=== PATIENT | male | born 1940 | race Caucasian/White ===

== ENCOUNTER 2024-09-04 08:38 | Outpatient (RCR) | payer OTHER, SELFPAY ==
--- NOTE | 2024-09-04 09:51 | CTCFLWUP_ITS ---
[facility] [address] [place], [place] [address] FOLLOW-UP NOTE Date: 09/04/2024 MR#: [id number] Name: RAO ADAMS : 1940 Dx: C34.11 Malignant neoplasm of upper lobe, right bronchus or lung Identification. 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 Posttreatment PET 05/24/2024 revealed hypermetabolic 4.3 x 2.2 cm right upper lobe as well as multiple osteolytic lesions T-spine. There was suspicion of thoracic area along with adjacent right fifth rib involvement but he did not w ramirez to pursue this and this area was to be too small to biopsy according to [place] radiologist. MRI of T-spine was ordered with and without contrast February 2024. 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 Exam of the lung was clear. Patient not complaining of pain and appears to walk without difficulty. A#1. 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 Posttreatment PET 05/24/2024 shows still prominent lesion along with osteolytic lesion T-spine. A#3. Will repeat PET scan at this time. Patient citing age states that he is likely not want anythi ng more done in regards to the PET scan results. A#4 3 months return to clinic Electronically signed by: Gino Freeman M.D. 09/04/2024 9:49 AM
== END 2024-09-15 23:59 | disposition home or self-care (01) ==
LOC: SCTC 08:38
PROVIDERS: PCP Family Medicine; Referring Provider Family Medicine; Visit Provider Radiology Therapeutic Radiology
DX: C34.11 Malignant neoplasm of upper lobe, right bronchus or lung (principal); Z92.3 Personal history of irradiation; M89.58 Osteolysis, other site
CPT/HCPCS: 99213; G0463

== ENCOUNTER → 2024-10-11 | Outpatient (CLI) | payer OTHER, SELFPAY ==
--- NOTE | 2024-10-11 08:45 | XR_ITS ---
EXAMINATION: PET/CT FUSION SKULL TO THIGH EXAM DATE AND TIME: October 11, 2024 0915 hours Comparison May 24, 2024 INDICATIONS: Diagnosis lung cancer restaging CTDI:vol (mGy) 8.21 DLP: (mGycm) 749.66 PROCEDURE: 15.79 mCi FDG was administered intravenously To allow for distribution and uptake of radiotracer, the patient was allowed to rest quietly in a shielded room. Imaging was performed on an integrated 16-slice PET/CT scanner, with scanning from the skull base to the mid thigh. Serum blood glucose at the time of the injection was measured 154 mg/dL. CT scanning was performed without oral or intravenous contrast material. FINDINGS: Head and Neck: Mildly hypermetabolic left thyroid lobe Chest: Probable hypermetabolic muscle activity posterior left shoulder Enlarging hypermetabolic pulmonary mass right upper lobe, currently 4.9 x 4.3 cm invading the right tracheobronchial lymph node region Abdomen and Pelvis: There is no nessa hypermetabolism in retroperitoneal or pelvic chains. The spleen is normal in size and FDG avidity. Musculoskeletal: Non hypermetabolic osteolytic lesions thoracic spine do not show definite change on this low resolution CT chest abdomen IMPRESSION: Enlarging hypermetabolic pulmonary mass right upper lobe, currently 4.9 x 4.3 cm compared with 4.3 x 2.[address] scan May 24, 2024 Unchanged recommendations for MRI cervical thoracic and lumbar spine to assess for osseous metastatic disease
== END | disposition home or self-care (01) ==
PROVIDERS: Referring Provider Radiology Therapeutic Radiology; Visit Provider Radiology Therapeutic Radiology
DX: R91.8 Other nonspecific abnormal finding of lung field (principal); C34.11 Malignant neoplasm of upper lobe, right bronchus or lung
CPT/HCPCS: 78815; A9552

== ENCOUNTER 2024-10-15 10:58 | Outpatient (RCR) | payer OTHER, SELFPAY ==
--- NOTE | 2024-10-15 13:59 | CTCFLWUP_ITS ---
[facility] [address] [place], [place] [address] FOLLOW-UP NOTE Date: 10/15/2024 MR#: [id number] Name: RAO ADAMS : 1940 Dx: C34.11 Malignant neoplasm of upper lobe, right bronchus or lung Patient with non-small cell lung CA right upper lobe growing T1 size between 2 and 3 cm Completed SBRT 5 fractions between October and November 2023. Most recent PET shows enlarging mass right upper lobe now 4.9 x 4.3 cm. Also shows osteolytic lesions in T-spine. Patient has suspected spine met which did not want worked up or biopsied and just wanted to go with S BRT radiation to the known lung cancer. Patient states that he has been coughing up blood. Ordered chest x-ray. Told patient I will call hi m with results. Addendum. 5 cm right upper lobe nodule. No significant change from PET scan. Z-Edison ordered. See h im back within a month. Electronically signed by: Gino Freeman M.D. 10/15/2024 1:57 PM
== END 2024-10-16 23:59 | disposition home or self-care (01) ==
LOC: SCTC 10:58
PROVIDERS: Referring Provider Radiology Therapeutic Radiology; Visit Provider Radiology Therapeutic Radiology
DX: C34.11 Malignant neoplasm of upper lobe, right bronchus or lung (principal); R07.89 Other chest pain
CPT/HCPCS: 99213; G0463

== ENCOUNTER 2024-10-29 08:44 | Outpatient (RCR) | payer OTHER, SELFPAY ==
--- NOTE | 2024-10-29 10:47 | CTCFLWUP_ITS ---
[facility] [address] [place], [place] [address] FOLLOW-UP NOTE Date: 10/29/2024 MR#: [id number] Name: RAO ADAMS : 1940 Dx: C34.11 Malignant neoplasm of upper lobe, right bronchus or lung Identification. Patient with non-small cell lung CA right upper lobe T1 size between 2 and 3 cm. Completed SBRT 5 fractions between October therapy 2023. Most recent PET scan shows enlarging mass right upper lobe now 4.9 x 4.3 cm. Also showed osteolytic lesion in T-spine. Patient has suspected spine met which he did not want worked up or biopsied just wanted to go with SB RT radiation to the known lung cancer. Patient was coughing up blood and chest x-ray ordered 10/15/2024 which revealed a 5 cm pulmonary mass right upper lobe with no obvious infectious process. Lungs sound clear today. Complains of pain in right chest wall unrelieved by Tylenol. Placed patien t on [place] 5 and ordered a chest CT scan. Will see patient back in 2 months time. Complaining of pain right chest. Electronically signed by: Gino Freeman M.D. 10/29/2024 10:45 AM
== END 2024-11-16 23:59 | disposition home or self-care (01) ==
LOC: SCTC 08:44
PROVIDERS: Referring Provider Radiology Therapeutic Radiology; Visit Provider Radiology Therapeutic Radiology
DX: C34.11 Malignant neoplasm of upper lobe, right bronchus or lung (principal); G89.3 Neoplasm related pain (acute) (chronic); M89.58 Osteolysis, other site; Z92.3 Personal history of irradiation
CPT/HCPCS: 99213; G0463

== ENCOUNTER → 2024-11-15 | Outpatient (CLI) | payer OTHER, SELFPAY ==
[2024-11-15 13:15] LABS: Basophils % (Auto) 0 % (0-2.5); Eosinophils # (Auto) 0.1 Thou/mm3 (0.0-0.5); Eosinophils % (Auto) 1 % (0-10); Hemoglobin 13.1 g/dL (13.5-16.0); Immature Granulocytes % (Auto) 0 % (0-0); Immature Granulocytes Auto 0.02 Thou/mm3 (0.00-0.00); Lymphocytes # (Auto) 1.6 Thou/mm3 (1.0-4.8); Lymphocytes % (Auto) 21 % (10-50); Mean Corpuscular HGB Conc 32.8 g/dl (31.0-37.0); Mean Corpuscular Hemoglobin 28.6 pg (25.0-35.0); Mean Corpuscular Volume 87 fL (80-100); Monocytes # (Auto) 0.7 Thou/mm3 (0.0-0.8); Monocytes % (Auto) 9 % (0-12); Neutrophils # (Auto) 5.1 Thou/mm3 (1.8-7.7); Neutrophils % (Auto) 68 % (37-80); Nucleated Red Blood Cell % 0 /100 WBC (0); Platelet Count 254 Thou/mm3 (140-440); RDW Standard Deviation 41.1 fL (35.1-43.9); Red Blood Count 4.58 Miln/mm3 (4.50-5.90); White Blood Count 7.5 Thou/mm3 (3.8-10.6)
[2024-11-15 13:25] LABS: Alanine Aminotransferase 44 U/L (10-49); Alkaline Phosphatase 149 U/L (46-116); Anion Gap 5 (7-16); Aspartate Amino Transferase 34 U/L (0-34); BUN/Creatinine Ratio 23 Ratio (12-20); Bilirubin,Total 0.5 mg/dL (0.3-1.2); Blood Urea Nitrogen 16 mg/dL (9-23); Calcium 10.1 mg/dL (8.3-10.6); Calcium (Corrected) 10.1 mg/dL (8.5-10.1); Carbon Dioxide 30.8 mMol/L (20.0-31.0); Chloride 101 mMol/L (98-107); Creatinine (Component) 0.7 mg/dL (0.6-1.3); Glucose 154 mg/dL (74-106); Osmolality,Calculated 278 (275-295); Potassium 4.1 mMol/L (3.4-5.1); Sodium 137 mMol/L (136-145); eGFR > 60 See Note
== END | disposition home or self-care (01) ==
PROVIDERS: Referring Provider Radiology Therapeutic Radiology; Visit Provider Radiology Therapeutic Radiology
DX: C34.11 Malignant neoplasm of upper lobe, right bronchus or lung (principal)
CPT/HCPCS: 36415; 80053; 85025

== ENCOUNTER → 2024-11-22 | Outpatient (CLI) | payer OTHER, SELFPAY ==
--- NOTE | 2024-11-22 12:00 | XR_ITS ---
Examination: CT chest with intravenous contrast 2-D sagittal and coronal reconstructions Exam date and time: November 22, 2024 1150 hours COMPARISON: PET CT scan October 11, 2024 INDICATIONS: Diagnosis malignant neoplasm upper lobe right bronchus, hemoptysis coughing 2 months, PET CT scan October 11, 2024 hypermetabolic pulmonary mass right upper lobe 4.9 x 4.3 cm CTDI:vol (mGy) 11.6 DLP: (mGycm) 102 Technique: Multiple axial sections of the thorax have been obtained. Sections have been obtained, 3 mm slice thickness. Mediastinal and lung density settings have been obtained. Intravenous contrast administered, 60 cc Isovue-370. 2-D sagittal, coronal images obtained. Low dose protocols were performed. One or more of the following dose reduction techniques were used; automated exposure control, adjustment of the mA and/or KV according to patient size, use of iterative reconstruction technique. Findings: 20 mm left thyroid nodule Pulmonary mass right upper lobe 5.4 x 4.2 x 6.1 cm contiguous with the right mediastinum and surrounding and upper lobe pulmonary artery branch 2 mm pulmonary nodule left lower lobe 2 mm pulmonary nodule right upper lobe 3 mm pulmonary nodule right lower lobe No visualized liver or splenic lesions Absent gallbladder No pancreatic or adrenal mass No hydronephrosis IMPRESSION: 5.4 x 4.2 x 6.1 cm pulmonary mass right upper lobe contiguous with the right mediastinum Noncalcified metastatic pulmonary nodules 20 mm left thyroid nodule, consider thyroid sonography follow-up
== END | disposition home or self-care (01) ==
PROVIDERS: Referring Provider Radiology Therapeutic Radiology; Visit Provider Radiology Therapeutic Radiology
DX: E04.1 Nontoxic single thyroid nodule (principal); R91.1 Solitary pulmonary nodule; C78.00 Secondary malignant neoplasm of unspecified lung; C34.11 Malignant neoplasm of upper lobe, right bronchus or lung
CPT/HCPCS: 71260; A4649; Q9967

== ENCOUNTER 2024-12-27 07:30 | Outpatient (RCR) | payer OTHER, SELFPAY ==
--- NOTE | 2024-12-27 08:44 | CTCFLWUP_ITS ---
[facility] [address] [place], [place] [address] FOLLOW-UP NOTE Date: 12/27/2024 MR#: [id number] Name: RAO ADAMS : 1940 Dx: C34.11 Malignant neoplasm of upper lobe, right bronchus or lung Identification. Patient with non-small cell lung C right upper lobe T1 size between 2 and 3 cm. Completed SBRT 5 fractions 11/15/2023 through 11/30/2023 Most recent PET scan 10/11/2024 showed enlarging right upper mass now 4.3 x 4.3 cm. Also showed osteolytic lesion T-spine. Patient with previously suspected lesion spine met did not want this worked up or biopsied just 1 to get SBRT radiation to the known lung cancer. CT scan chest 11/22/2024 showed lesion 5.4 x 4.2 x 6.1 cm pulmonary mass right upper lobe contiguous with the right mediastinum. There was also noncalcified metastatic pulmonary nodules. Electronically signed by: Gino Freeman M.D. 12/27/2024 8:41 AM There was a 20 mm left thyroid nodule as well. Currently patient is having some right chest wall pain. Denies any more hemoptysis. [facility] who referred patient to Dr. Dahl and left a message. Will order biopsy of the right lung mass and see him back in 2 months.
== END 2025-01-14 23:59 | disposition home or self-care (01) ==
LOC: SCTC 07:30
PROVIDERS: PCP Physician Assistant; Referring Provider Radiology Therapeutic Radiology; Visit Provider Radiology Therapeutic Radiology
DX: C34.11 Malignant neoplasm of upper lobe, right bronchus or lung (principal); R91.8 Other nonspecific abnormal finding of lung field
CPT/HCPCS: 99212; G0463

== ENCOUNTER 2025-01-21 14:09 | Emergency (ER) | payer OTHER, SELFPAY ==
[2025-01-21 14:13] VITALS: BMI 27.8
[2025-01-21 14:21] VITALS: BP 121/56; PULSE 95; RESP 18; TEMP 36.6; O2SAT 94
--- NOTE | 2025-01-21 14:39 | XR_ITS ---
Impression: Chest 2 views Technique: Upright PA lateral chest 2 views Exam date and time: January 21, 2025 1517 hrs. Comparison October 15, 2024 Indications: Shortness of breath today Findings: Pulmonary mass right upper lobe again noted Obstructive pneumonia in the right upper lobe Normal heart size Moderate osteopenia Impression: Pulmonary mass right upper lobe again noted, please see the CT chest report November 22, 2024 Early obstructive pneumonia right upper lobe Minimal right pleural fluid
--- NOTE | 2025-01-21 14:39 | PD.EDRME ---
Rapid Medical Screening Exam RME Arrival date/time: 01/21/25 14:09 84-year-old male with a history of lung cancer presents to the emergency room with a chief complaint of shortness of breath and chest pain x 1 week I have greeted and performed a focused initial assessment of this patient. A comprehensive ED assessment and evaluation of the patient, analysis of all test results, and completion of the medical decision making process will be conducted by additional ED providers. Chief Complaint: Shortness of Breath/Dyspnea Vital signs: Vital Signs Temperature 97.9 F 01/21/25 14:21 Pulse Rate 95 01/21/25 14:21 Respiratory Rate 18 01/21/25 14:21 Blood Pressure 121/56 L 01/21/25 14:21 Pulse Oximetry (%) 94 L 01/21/25 14:21 Oxygen Delivery Method Room Air 01/21/25 14:21 Vital signs reviewed by provider: Yes
[2025-01-21 15:02] LABS: Basophils % (Auto) 0 % (0-2.5); Eosinophils # (Auto) 0.1 Thou/mm3 (0.0-0.5); Eosinophils % (Auto) 1 % (0-10); Hematocrit 40.3 % (41.0-53.0); Hemoglobin 13.2 g/dL (13.5-16.0); Immature Granulocytes % (Auto) 1 % (0-0); Immature Granulocytes Auto 0.07 Thou/mm3 (0.00-0.00); Lymphocytes % (Auto) 9 % (10-50); Mean Corpuscular HGB Conc 32.8 g/dl (31.0-37.0); Mean Corpuscular Hemoglobin 29.3 pg (25.0-35.0); Mean Corpuscular Volume 89 fL (80-100); Monocytes % (Auto) 9 % (0-12); Neutrophils # (Auto) 9.1 Thou/mm3 (1.8-7.7); Neutrophils % (Auto) 81 % (37-80); Nucleated Red Blood Cell % 0 /100 WBC (0); Platelet Count 286 Thou/mm3 (140-440); RDW Standard Deviation 45.1 fL (35.1-43.9); Red Blood Count 4.51 Miln/mm3 (4.50-5.90); White Blood Count 11.3 Thou/mm3 (3.8-10.6)
[2025-01-21 15:23] LABS: Alanine Aminotransferase 14 U/L (10-49); Albumin, Serum 3.7 gm/dL (3.4-4.8); Alkaline Phosphatase 155 U/L (46-116); Anion Gap 9 (7-16); Aspartate Amino Transferase 19 U/L (0-34); BUN/Creatinine Ratio 19 Ratio (12-20); Blood Urea Nitrogen 13 mg/dL (9-23); Calcium 10.5 mg/dL (8.3-10.6); Calcium (Corrected) 10.7 mg/dL (8.5-10.1); Carbon Dioxide 31.8 mMol/L (20.0-31.0); Chloride 96 mMol/L (98-107); Creatinine (Component) 0.7 mg/dL (0.6-1.3); Estimated Creatinine Clearance 79.5 mL/min (>60); Globulin 3.8 gm/dL (2.3-3.5); Glucose 160 mg/dL (74-106); Lipase 38 U/L (12-53); Osmolality,Calculated 276 (275-295); Potassium 3.6 mMol/L (3.4-5.1); Sodium 137 mMol/L (136-145); Total Protein 7.5 gm/dL (5.7-8.2); eGFR > 60 See Note
[2025-01-21 15:37] LABS: Collection Type, Urine Clean Catch
[2025-01-21 15:44] LABS: Bilirubin,Urine Negative (Negative); Blood,Urine Negative (Negative); Clarity,Urine Clear (Clear/Hazy); Color,Urine Yellow (Lt Yel-Yel); Glucose, Urine Negative (Negative); Hyaline Casts,Urine < 1 /hpf (0-1); Ketones,Urine Negative (Negative); Leukocyte Esterase,Urine Negative (Negative); Nitrite,Urine Negative (Negative); PH,Urine 6.5 (5.0-7.0); Protein,Urine 1+ (Neg - Trace); RBC,Urine 2 /hpf (0-3); Specific Gravity,Urine 1.031 (1.001-1.035); Squamous Epithelial Cell,Urine < 1 /hpf (0-5); WBC,Urine 3 /hpf (0-5)
--- NOTE | 2025-01-21 16:14 | PD.EDRME ---
Rapid Medical Screening Exam RME Arrival date/time: 01/21/25 14:09 01/21/25 14:09 84-year-old male with a history of lung cancer presents to the emergency room with a chief complaint of shortness of breath and chest pain x 1 week I have greeted and performed a focused initial assessment of this patient. A comprehensive ED assessment and evaluation of the patient, analysis of all test results, and completion of the medical decision making process will be conducted by additional ED providers. Chief Complaint: Shortness of Breath/Dyspnea Time Seen by Provider: 01/21/25 16:12 Vital signs: Vital Signs Temperature 97.9 F 01/21/25 14:21 Pulse Rate 95 01/21/25 14:21 Respiratory Rate 18 01/21/25 14:21 Blood Pressure 121/56 L 01/21/25 14:21 Pulse Oximetry (%) 94 L 01/21/25 14:21 Oxygen Delivery Method Room Air 01/21/25 14:21 RME Narrative: 01/21/25 14:09 84-year-old male with a history of lung cancer presents to the emergency room with a chief complaint of shortness of breath and chest pain x 1 week I have greeted and performed a focused initial assessment of this patient. A comprehensive ED assessment and evaluation of the patient, analysis of all test results, and completion of the medical decision making process will be conducted by additional ED providers.
--- NOTE | 2025-01-21 18:05 | XR_ITS ---
Examination: CTA chest with intravenous contrast 2-D reconstructions 3-D reconstructions, vascular Date and time of exam: January 22, 2025 0754 hrs. Comparison November 22, 2024 Indications: Onset chest pain shortness of breath today, lung carcinoma diagnosis CTDI: vol (mGy) 24.6 DLP: (mGycm) 575 Technique: Multiple axial sections of the thorax have been obtained. 3 mm slice thickness, from below the hemidiaphragms to above the apices of the lungs. Mediastinal and lung density settings have been obtained. 2-D sagittal and coronal reconstructions. 3-D angiographic renderings, 3-D volume renderings, 3D post processing, vascular maximum intensity projections obtained. Contrast administered is 100 cc Isovue-370. Low dose protocols were performed. One or more of the following dose reduction techniques were used; automated exposure control, adjustment of the mA and/or KV according to patient size, use of iterative reconstruction technique. Findings: Significant thyromegaly with multiple left thyroid nodules, the largest 21 mm no thoracic aortic aneurysmal dilatation No pulmonary artery emboli Enlarging pulmonary mass right upper lobe contiguous with the right mediastinum, measuring 7.1 x 5.8 cm compared to 6.1 x 5.4 cm on November 22, 2024 This mass is destroying the right first second ribs anteriorly No pulmonary artery emboli 4 mm pulmonary nodule posterior right lung Pneumonia in the right upper lobe Pneumonia right base with mild bilateral pleural fluid No visualized liver or splenic lesion Absent gallbladder No pancreatic or adrenal mass No hydronephrosis Prominent osteopenia Impression: Enlarging pulmonary mass right upper lobe invading the right mediastinum, measuring 7.1 x 5.8 cm compared to 6.1 x 5.4 cm on November 22, 2024 This mass is destroying portions of the right first and second ribs anteriorly Pneumonia right upper lobe, right base Negative for pulmonary artery emboli
--- NOTE | 2025-01-21 18:05 | EKG_ITS ---
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
--- NOTE | 2025-01-21 18:27 | PC.NURSE ---
SP02 TAKEN IN MAIN ED LOBBY 97% ON RA. PATIENT BREATHING WITH NO DIFFICULTY. POC UPDATED, PATIENT UPSET FOR BEING IN MAIN LOBBY, AND NOT IN BED AT THIS TIME.
[2025-01-21 18:31] LABS: Troponin I < 0.020 ng/mL (0.0-0.045)
[2025-01-21 18:47] LABS: B-Type Natriuretic Peptide 25 pg/mL (0-100)
--- NOTE | 2025-01-21 18:55 | PD.EDSOB ---
ED SOB =RME/HPI General Chief Complaint: Shortness of Breath/Dyspnea Stated Complaint: SOB AND COUGH X1 MONTH ([place] PATIENT) Time Seen by Provider: 01/21/25 16:12 Arrival date/time: 01/21/25 14:09 RME / HPI RME / HPI Narrative: 01/21/25 14:09 84-year-old male with a history of lung cancer presents to the emergency room with a chief complaint of shortness of breath and chest pain x 1 week I have greeted and performed a focused initial assessment of this patient. A comprehensive ED assessment and evaluation of the patient, analysis of all test results, and completion of the medical decision making process will be conducted by additional ED providers. This section includes all my notes and documentations, including HPI, PE, and ED course. Gael Freeman MD HPI: 84-year-old male here with a couple month history of right-sided chest pain and shortness of breath, worse in the past few days. Has unfortunate history of lung cancer. Completed radiation treatment about 6 months ago. Declined chemotherapy. No surgery. No fever or chills. No productive cough. No other complaints. ROS: All negative except as documented in HPI. Physical Exam: General: Alert and oriented. In mild respiratory distress. Hypoxia noted. Eyes: Conjunctivae and lids clear. ENT: No nasal congestion. Neck: Supple. Heart: RRR. Lungs: Mild respiratory distress. Moderately decreased air movement with rhonchi and rales. Abdomen: Soft and nontender. Legs: No clubbing, cyanosis, edema. Skin: Warm and dry. Neuro: Alert and oriented X 3. I reviewed all diagnostic test results. My interpretation of the EKG is sinus rhythm with no acute ST?T changes. My review of the chest x-ray report is: Pulmonary mass right upper lobe. Obstructive pneumonia right upper lobe. Blood tests and urine tests remarkable for WBC 11.3, ESR 90, D-dimer 866, CRP 4.3. At this point, diagnoses include chest pain and shortness of breath with hypoxia and lung cancer patient. Treatment here included IV fluid, Solu-Medrol, DuoNeb, morphine, and Zosyn. At 6 AM on 01/22/25, the care of the patient was transferred to Dr. NOBLES with chest CTA pending. Gael Freeman MD Related Data Home Medications ?Medication ?Instructions ?Recorded ?Confirmed bisacodyl 5 mg tablet 5 mg PO QDAY PRN Constipation 12/19/17 12/19/17 hydrochlorothiazide 12.5 mg capsule 12.5 mg PO QAM 12/19/17 12/19/17 tamsulosin 0.4 mg capsule 0.4 mg PO QDAY 12/19/17 12/19/17 Previous Rx's ?Medication ?Instructions ?Recorded doxycycline hyclate 100 mg capsule 100 mg PO BID #14 caps 12/19/17 Allergies Allergy/AdvReac Type Severity Reaction Status Date / Time No Known Allergies Allergy Verified 01/21/25 14:13 Review of Systems Review of Systems Systems Reviewed: All systems reviewed, normal except as documented Past Medical History Past Medical History CARDIAC: Positive Hypertension; Negative Cardiac Disorders or Congestive Heart Failure RESPIRATORY: Negative Chronic Obstructive Pulmonary Disease (COPD) or Asthma GENITOURINARY: Positive Benign Prostatic Hyperplasia; Negative Renal Disease ENDOCRINE: Negative Diabetes Mellitus Type 1 or Diabetes Mellitus Type 2 HEMATOLOGIC: Negative Sickle Cell Disease Social History SMOKING STATUS: Former smoker ED Exam Narrative Physical exam: As noted in HPI. Course Course Course Narrative: CXR is ordered for determining the etiology of shortness of breath. Quality Measures none Orders Category Date Time Status Bedside COVID-19 Antigen Test NOW Care 01/21/25 19:31 Active Bedside Influenza A&B Antigen Test NOW Care 01/21/25 19:[address] Screening NOW Care 01/21/25 18:[address] Screening X1 Care 01/21/25 18:05 Completed EKG (ED ONLY) *Do not use* NOW Care 01/21/25 18:05 Completed Saline [Insert IV] NOW Care 01/21/25 19:[address] angio chest Stat Exams 01/21/25 18:05 Ordered EKG (ED Only) Stat Exams 01/21/25 18:05 Draft XR chest 2V Stat Exams 01/21/25 14:39 Completed ABG [Arterial Blood Gas] Stat Lab 01/21/25 20:12 Completed BNP [B-Type Natriuretic Peptide] Stat Lab 01/21/25 14:48 Completed Blood Culture (Lab) Stat Lab 01/21/25 19:42 Received CBC Stat Lab 01/21/25 14:48 Completed CMP [Comprehensive Metabolic Panel] Stat Lab 01/21/25 14:48 Completed CRP [C-Reactive Protein] Stat Lab 01/21/25 19:46 Completed D-Dimer Stat Lab 01/21/25 19:46 Completed ESR [Sed Rate (ESR)] Stat Lab 01/21/25 19:46 Completed Free T4 (Free Thyroxine) Stat Lab 01/21/25 19:46 Completed Lipase Stat Lab 01/21/25 14:48 Completed Magnesium Stat Lab 01/21/25 19:46 Completed PT [Prothrombin Time with INR] Stat Lab 01/21/25 19:46 Completed PTT [Partial Thromboplastin Time] Stat Lab 01/21/25 19:46 Completed Procalcitonin Stat Lab 01/21/25 19:46 Completed RSV [Respiratory Syncytial Virus Ag] Stat Lab 01/21/25 22:00 Completed TSH [Thyroid Stimulating Hormone] Stat Lab 01/21/25 19:46 Completed Troponin I Stat Lab 01/21/25 14:48 Completed UA [Urinalysis] Stat Lab 01/21/25 15:18 Completed Urine Culture Stat Lab 01/21/25 15:18 Received Albuterol/Ipratr Rt Jennifer [Duoneb Rt Jennifer] Med 01/21/25 19:29 Discontinued 3 ml INH X1 ONE MethylPREDNISolone.* [SoluMEDROL Inj] Med 01/21/25 19:29 Discontinued 125 mg IVP X1 ONE Piper/Tazo 3.375 gm Premix [Zosyn] Med 01/21/25 19:29 Discontinued 3.375 gm in 50 ml IV X1 Sodium Chloride 0.9% 1000 ml [Ns] 1,000 ml Med 01/21/25 19:29 Discontinued IV 999 mls/hr Vital Signs Vital signs: Vital Signs Temperature 97.9 F 01/21/25 14:21 Pulse Rate 95 01/21/25 14:21 Respiratory Rate 18 01/21/25 14:21 Blood Pressure 121/56 L 01/21/25 14:21 Pulse Oximetry (%) 94 L 01/21/25 14:21 Oxygen Delivery Method Room Air 01/21/25 14:21 Shortness of Breath / Dyspnea Patient data External records reviewed:: [facility] previous records (Per chart review, patient was seen here on 02/26/21 for shortness of breath.) Clinical information provided by:: patient Social determinants that could affect healthcare access:: none Patient has the following chronic illnesses:: HTN, BPH, lung cancer How is presenting disease/condition affected by chronic disease/condition?: exacerbated by Evaluation data The following diagnostics were reviewed and interpreted by me:: lab results, radiology exam(s) and EKG tracing(s) Lab and/or radiology exams considered but not ordered:: none Interpretation Summary: Complete diagnostics pending Medications / Prescriptions Medications or Prescriptions considered but not ordered:: none Medication administrations:: Medication Administration History Discontinued Medications Albuterol/Ipratropium (Albuterol/Ipratropium (Duoneb) Rt Jennifer 3 Ml Nebu) 3 ml INH X1 ONE Stop: 01/21/25 19:30 Last Admin: 01/21/25 20:06 Dose: 3 ml Documented By: FLAQUITO Sodium Chloride (Ns) 1,000 mls @ 999 mls/hr IV .Q1H1M ONE Stop: 01/21/25 20:29 Last Infusion: 01/21/25 21:55 Dose: Infused Documented By: Admin: 01/21/25 20:43 Dose: 999 mls/hr Documented By: DAYAN Piperacillin/Tazobactam/Dextrose (Zosyn) 3.375 gm in 50 mls @ 100 mls/hr IV X1 ONE Stop: 01/21/25 19:58 Last Infusion: 01/21/25 21:16 Dose: Infused Documented By: Admin: 01/21/25 20:44 Dose: 100 mls/hr Documented By: DAYAN Methylprednisolone Sodium Succinate (Methylprednisolone Sod Succ 62.5 Mg/Ml 2ml Vial) 125 mg IVP X1 ONE Stop: 01/21/25 19:30 Last Admin: 01/21/25 20:44 Dose: 125 mg Documented By: DAYAN Duoneb, NS, Zosyn, Methylprednisolone, morphine Consultations Consultation(s) initiated? (list below): No Diagnosis Shortness of Breath Differential Diagnosis: acute exacerbation of chronic obstructive airways disease, congestive heart failure, community acquired pneumonia, asthma with exacerbation and pulmonary embolism Most likely diagnosis given after review of the tests above:: Complete diagnostics pending Admission Indicated Admission indicated?: not indicated Explain why admission is indicated or not indicated:: Complete diagnostics pending Admission Request Was there a request for admission?: No Disposition Plan Disposition Plan: other (specify) (Care of the patient was transferred to Dr. NOBLES.) Discharge Plan Prescriptions/Referrals Prescriptions/Med Rec: No Action tamsulosin 0.4 mg Capsule,Extended Release 24hr 0.4 mg PO QDAY hydrochlorothiazide 12.5 mg Capsule 12.5 mg PO QAM bisacodyl 5 mg Tablet 5 mg PO QDAY PRN (Reason: Constipation) doxycycline hyclate 100 mg capsule 100 mg PO BID Qty: 14 0RF Referrals: Gino Freeman MD [Primary Care Provider] - In 1 week Problem List Clinical Impression: Shortness of breath, Chest pain Patient/Caregiver Discharge Instructions Print Language: Slovak
[2025-01-21 19:56] VITALS: BP 146/76; PULSE 82; RESP 18; TEMP 36.4; O2SAT 96
[2025-01-21] MEDS: ALBUTEROL/IPRATROPIUM (Duoneb) RT SOL 3 ML NEBU INH (20:06)
[2025-01-21 20:17] VITALS: PULSE 81; RESP 18; O2SAT 98
[2025-01-21 20:17] LABS: Base Excess 9 (-3-3); HCO3 34 mEq/L (20-26); Inspired Oxygen, FIO2 97 %; O2 Saturation 95 % (91-98); PCO2 44 mmHg (32.0-48.0); PO2 69 mmHg (83-108); pH, Arterial 7.49 (7.35-7.45)
[2025-01-21 20:18] LABS: Allen Test Performed/OK; Puncture Site Left Radial
[2025-01-21 20:27] LABS: INR 1.1 (0.9-1.3); Partial Thromboplastin Time 26.2 Seconds (22.0-36.0); Prothrombin Time 12.4 Seconds (9.0-12.2)
[2025-01-21 20:36] LABS: C-Reactive Protein 4.3 mg/dL (0.0-0.9); Free T4 (Free Thyroxine) 1.17 ng/dL (0.89-1.76); Magnesium 1.9 mg/dL (1.6-2.6); Procalcitonin 0.15 ng/ml (0.0-0.49); Thyroid Stimulating Hormone 0.98 uIU/mL (0.55-4.78)
[2025-01-21 20:38] LABS: D-Dimer 866 ng/mL (<600)
[2025-01-21 20:39] LABS: Sed Rate (ESR) 90 mm/hr (0-20)
[2025-01-21] MEDS: SODIUM CHLORIDE 0.9% 1000 ML 1,000 ML 999 ML IV (20:43)
[2025-01-21] MEDS: MethylPREDNISolone SOD SUCC 62.5 MG/ML 2ML VIAL 125 MG IVP (20:44)
[2025-01-21] MEDS: PIPER/TAZO 3.375 GM PREMIX 3.375 GM/50 ML BAG IV (20:44)
[2025-01-21 20:57] VITALS: BP 152/76; PULSE 81; RESP 17; O2SAT 96
[2025-01-21 21:00] VITALS: BP 152/76; PULSE 84; RESP 20; TEMP 36.7; O2SAT 92
--- NOTE | 2025-01-21 22:00 | PC.CC ---
Zaira SNYDER arranged CT Transport for patient with [facility] for 0500.
[2025-01-21 22:45] LABS: Respiratory Syncytial Virus Ag Negative (Negative)
[2025-01-22] VITALS (10 sets, daily range): BP systolic 125–167; BP diastolic 73–94; PULSE 70–86; RESP 18–20; TEMP 36.7–37; O2SAT 93–97
--- NOTE | 2025-01-22 06:06 | PD.EDADDENDU ---
Emergency Room Addendum Addendum Narrative: 0600: Care assumed from Dr. Freeman, the previous shift emergency physician. Past medical, surgical, social and family history reviewed. Vitals and home medications reviewed. I will assume the care of the patient at this time, pending chest CTA and final disposition. Please refer to the emergency department record for history and examination from initial visit.? Physical exam by me shows patient under no acute distress at this time. 1005: Patient remains clinically stable throughout the emergency department visit. Re-assessment at the time of disposition demonstrates that the patient is in no acute distress. We reviewed all the results, analysis, and treatment plans. Patient is amenable to discharge. Strict return precautions were outlined. Patient was discharged in stable condition. Diagnoses: -Shortness of breath -Chest pain -Lung mass RADIOLOGY Procedure(s): CT angio chest Accession Number(s): [id number] cc: Jean Pierre Blevins; Gino Freeman MD; Ashkan Bruce MD~ Examination: CTA chest with intravenous contrast 2-D reconstructions 3-D reconstructions, vascular Date and time of exam: January 22, 2025 0754 hrs. Comparison November 22, 2024 Indications: Onset chest pain shortness of breath today, lung carcinoma diagnosis CTDI: vol (mGy) 24.6 DLP: (mGycm) 575 Technique: Multiple axial sections of the thorax have been obtained. 3 mm slice thickness, from below the hemidiaphragms to above the apices of the lungs. Mediastinal and lung density settings have been obtained. 2-D sagittal and coronal reconstructions. 3-D angiographic renderings, 3-D volume renderings, 3D post processing, vascular maximum intensity projections obtained. Contrast administered is 100 cc Isovue-370. Low dose protocols were performed. One or more of the following dose reduction techniques were used; automated exposure control, adjustment of the mA and/or KV according to patient size, use of iterative reconstruction technique. Findings: Significant thyromegaly with multiple left thyroid nodules, the largest 21 mm no thoracic aortic aneurysmal dilatation No pulmonary artery emboli Enlarging pulmonary mass right upper lobe contiguous with the right mediastinum, measuring 7.1 x 5.8 cm compared to 6.1 x 5.4 cm on November 22, 2024 This mass is destroying the right first second ribs anteriorly No pulmonary artery emboli 4 mm pulmonary nodule posterior right lung Pneumonia in the right upper lobe Pneumonia right base with mild bilateral pleural fluid No visualized liver or splenic lesion Absent gallbladder No pancreatic or adrenal mass No hydronephrosis Prominent osteopenia Impression: Enlarging pulmonary mass right upper lobe invading the right mediastinum, measuring 7.1 x 5.8 cm compared to 6.1 x 5.4 cm on November 22, 2024 This mass is destroying portions of the right first and second ribs anteriorly Pneumonia right upper lobe, right base Negative for pulmonary artery emboli Dictated By: Ashkan Bruce MD
[2025-01-22] MEDS: MORPHINE SULF INJ 10 MG/ML VIAL 4 MG IVP (06:32)
--- NOTE | 2025-01-22 10:02 | PC.NURSE ---
PATIENT 02
--- NOTE | 2025-01-22 10:08 | PC.NURSE ---
PATIENT REMOVED OFF 02 BY TO MONITOR TOLERANCE ON ROOM AIR. APPROX 15-20 MINUTES LATER PT 02 SATS DECREASED TO %88RA. MD AWARE. PT PLACED BACK ON 1L VIA NC
--- NOTE | 2025-01-22 11:23 | PC.SS ---
Addendum entered by MITUL Alcala 01/22/25 16:46: SS update: spoke with [facility] staff and they inform DME to be delivered within the next few minutes. Pizza Driver is on his way to the ED. ASW notified patient's grandson Myles [phone], who will notify [facility] about DME ETA. Addendum entered by MITUL Alcala 01/22/25 16:08: SS update: sent follow up message to [employer] via [employer] Pending call back from [employer] in regards to DME order. Addendum entered by MITUL Alcala 01/22/25 15:52: Attempted contact with [facility] to notify that we are pending DME vendor response for delivery. No answer and voicemail was provided. Addendum entered by MITUL Alcala 01/22/25 14:31: SS update: contacted [facility] and spoke with Celena at ext [phone] regarding DME insurance verification. Celena requested I fax the DME order to her at fax:[phone] for review. Per Celena, [facility] is still the assigned DME vendor and if approved for O2 delivery, [employer] will still need to confirm the DME delivery. Addendum entered by MITUL Alcala 01/22/25 13:39: SS update: contacted [facility] in regards to DME order pending for insurance verification. They were unable to assist. Attempted contact with [facility] DME vendor and they continue to be unavailable at this time. [facility] has been notified the patient is ready for discharge from the ED. No response at this time from [employer]. Addendum entered by MITUL Alcala 01/22/25 12:25: SS update: pending insurance verification for DME delivery. Attempted contact with [facility], however unavailable at this time. Original Note: SS follow up: DME inquiry sent via [employer], pending response for DME delivery.
== END 2025-01-22 17:51 | disposition home or self-care (01) ==
PROVIDERS: Emergency Medicine; Nurse Practitioner Family; Emergency Provider Emergency Medicine; PCP Radiology Therapeutic Radiology
DX: R06.02 Shortness of breath (principal); R07.9 Chest pain, unspecified; Z85.118 Personal history of other malignant neoplasm of bronchus and lung; Z92.3 Personal history of irradiation
CPT/HCPCS: 36415; 36600; 71046; 71275; 80053; 81001; 82803; 83690; 83735; 83880; 84145; 84439; 84443; 84484; 85025; 85379; 85610; 85652; 85730; 86140; 87040; 87086; 87400; 87634; 87811; 93005; 94640; 96365; 96375; 99285; A4649; A9270; J2270; J2543; J2919; J7030; Q9967

== ENCOUNTER → 2025-02-08 | Outpatient (CLI) | payer OTHER, SELFPAY ==
--- NOTE | 2025-02-08 14:30 | XR_ITS ---
Examination: Thyroid sonography complete TECHNIQUE: Grayscale sonographic images thyroid lobes with color flow analysis Exam date and time: February 08, 2025 1506 hours INDICATIONS: CT chest November 22, 2024 20 mm left thyroid nodule. FINDINGS: Right thyroid 3.5 cm Lower pole nodules the largest 11 x 10 mm Left thyroid 5.7 cm Upper pole nodule 11 x 11 mm midpole nodule 22 x 19 mm lower pole vascular nodule 37 x 36 mm IMPRESSION: Multiple thyroid nodules as above Consider ultrasound-guided fine-needle aspiration of the large vascular lower pole left thyroid nodule
== END | disposition home or self-care (01) ==
PROVIDERS: Referring Provider Nurse Practitioner Primary Care; Visit Provider Nurse Practitioner Primary Care
DX: E04.2 Nontoxic multinodular goiter (principal)
CPT/HCPCS: 76536

== ENCOUNTER 2025-03-17 23:33 | Emergency (ER) | payer OTHER, SELFPAY ==
[2025-03-17 23:40] VITALS: PULSE 124; RESP 26; O2SAT 60; BMI 28.1
[2025-03-17 23:53] VITALS: BP 131/74; PULSE 124; RESP 19; TEMP 37.1; O2SAT 95
[2025-03-18] VITALS (58 sets, daily range): BP systolic 58–143; BP diastolic 50–99; PULSE 105–167; RESP 12–35; TEMP 36.6–37.4; O2SAT 87–100
--- NOTE | 2025-03-18 00:11 | EKG_ITS ---
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
--- NOTE | 2025-03-18 00:19 | EDNOTE_ITS ---
ED SOB =RME/HPI General Chief Complaint: Shortness of Breath/Dyspnea Stated Complaint: HYPOXIA, FALL Time Seen by Provider: 03/17/25 23:38 Arrival date/time: 03/17/25 23:33 RME / HPI RME / HPI Narrative: Dr. Gracia?s Main ED Evaluation: 84yo male with a history of lung CA, prostate CA, DMI, HTN, dementia [facility] from [facility] presents to the ED for complaints of fall and hypoxia. Per caregiver, patient was attempting to ambulate out of bed when he tripped and fell, hitting his head. Unknown LOC. Per EMS, patient desaturated to the 60s en route and was placed on a nonrebreather mask. Patient has a history of dementia and is unable to provide accurate history. Full ROS is unobtainable due to the patient's history of dementia. Evidently, the patient is on hospice. There is no POLST noted from SNF paper work. Related Data Home Medications ?Medication ?Instructions ?Recorded ?Confirmed bisacodyl 5 mg tablet 5 mg PO QDAY PRN Constipatio n 12/19/17 12/19/17 hydrochlorothiazide 12.5 mg capsule 12.5 mg PO QAM 03/0312/19/17 tamsulosin 0.4 mg capsule 0.4 mg PO QDAY 12/19/1703/03 Previous Rx's ?Medication ?Instructions ?Recorded doxycycline hyclate 100 mg capsule 100 mg PO BID #14 c aps 12/19/17 Allergies Allergy/AdvReac Type Severity Reaction Status Date / Time No Known Allergies Allergy Verified 03/17/25 23:52 Review of Systems Review of Systems Systems Reviewed: All systems reviewed, normal except as documented Past Medical History Past Medical History NEUROLOGIC: Negative Neurological Disorders CARDIAC: Positive Hypertension; Negative Cardiac Disorders or Congestive Heart Failure RESPIRATORY: Negative Chronic Obstructive Pulmonary Disease (COPD) or Asthma GASTROINTESTINAL: Positive Gastrointestinal Disorders (uncontrolled bowel movements) and Gastroesophageal Reflux Disease GENITOURINARY: Positive Genitourinary Disorders, Kidney Stones, Prostate Cancer and Benign Prostatic Hyperplasia; Negative Renal Disease MUSCULOSKELETAL: Positive Musculoskeletal Disorders (cant raise both arms above shoulder) ENT: Positive Cataracts ENDOCRINE: Positive Endocrine Disorders (borderline diabetes,thyroid luml left thyroid (will get ultrasound thyroid)) and Diabetes Mellitus Type 1 (PER [facility] FACE SHEET); Negative Diabetes Mellitus Type 2 HEMATOLOGIC: Negative Blood Disorders (frequent nose bleeds) or Sickle Cell Disease OTHER HISTORY: Positive Radiation Therapy, Cancer, Lung Cancer and Prostate Cancer; Negative Blood Transfusions or Anesthesia Reactions Surgical History SURGICAL: Negative Cardiac Surgery Social History SMOKING STATUS: Former smoker ED Exam Narrative Physical exam: GENERAL APPEARANCE: alert and oriented x self, well-developed, well-nourished, no acute distress VITALS: All vitals were reviewed and the pulse ox is 95% on 3L/NC, which is normal according to my interpretation. HEENT: Normocephalic, 4 cm laceration over the right eyebrow with minimal surrounding swelling; pupils equal, round, reactive to light; EOMI; mucous mem branes pink, moist; oropharynx clear NECK: Supple CHEST: Tenderness on palpation of the anterior chest wall LUNGS: Diminished lung sounds bilaterally; no wheezes, no rales, no rhonchi HEART: Regular rate, regular rhythm; normal S1, S2; no murmurs ABDOMEN: non distended; normal BS; soft, nontender, no guarding, no rebound; no contusions, abrasions or ecchymosis BACK: no CVA tenderness EXTREMITIES: superficial abrasion over the right knee; tenderness on palpation of the right knee, 2+ pitting edema to the RUE NEUROLOGIC: awake; alert and oriented x self; cranial nerves II-XII grossly intact; no focal sensory or motor deficits PSYCHIATRIC: appropriate mood and affect SKIN: warm, dry, normal color; no rashes Course Course Course Narrative: CXR is ordered for determining the etiology of hypoxia. Quality Measures Possible source: pulmonary Blood cultures ordered: yes Antibiotic ordered: Yes Pertinent labs: 03/18/25 03/18/25 03/18/25 02:37 06:05 09:23 Lactic Acid 2.9 H mMol/L 3.3 H mMol/L 5.7 H* mMol/L (0.4-2.0) (0.4-2.0) (0.4-2.0) Procalcitonin 0.19 ng/ml (0.0-0.49) sepsis Orders Category Date Time Status CT Screening NOW Care 03/18/25 00:[address] Screening NOW Care 03/18/25 00:27 Completed Preassembler [employer]ed [employer] Board NOW Care 03/18/25 00:20 Completed Preassembler [employer]ed Circuit Board now Care 03/18/25 02:22 Completed Continuous Pulse Oximetry NOW Care 03/18/25 00:20 Completed Continuous Pulse Oximetry NOW Care 03/18/25 02:22 Completed EKG (ED ONLY) *Do not use* NOW Care 03/18/25 00:11 Completed In and Out Catheter X1 Care 03/18/25 02:22 Completed Insert IV NOW Care 03/18/25 00:20 Completed Insert IV NOW Care 03/18/25 02:22 Completed Splint / Immobilizer STAT Care 03/18/25 12:22 Completed Splint / Immobilizer STAT Care 03/18/25 12:51 Completed Strict Intake and Output Routine Care 03/18/25 02:[address] head/brain wo con Stat Exams 03/18/25 08:00 Completed EKG (ED Only) Stat Exams 03/18/25 00:11 Draft XR ankle RT 2V Stat Exams 03/18/25 00:20 Completed XR chest 1V portable Stat Exams 03/18/25 04:10 Completed XR elbow RT 2V Stat Exams 03/18/25 00:20 Completed XR forearm RT 2V Stat Exams 03/18/25 00:20 Completed XR hand RT 2V Stat Exams 03/18/25 00:20 Completed XR knee limited RT 2V Stat Exams 03/18/25 00:20 Completed XR shoulder RT min 2V Stat Exams 03/18/25 00:20 Completed ABG [Arterial Blood Gas] Stat Lab 03/18/25 03:56 Completed ABG [Arterial Blood Gas] Stat Lab 03/18/25 05:00 Completed B-Type Natriuretic Peptide Stat Lab 03/18/25 00:45 Completed Blood Culture (Lab) Stat Lab 03/18/25 02:33 Received CBC Stat Lab 03/18/25 00:45 Completed Comprehensive Metabolic Panel Stat Lab 03/18/25 00:45 Completed Lactate (Lactic Acid) Stat Lab 03/18/25 02:37 Completed Lactate (Lactic Acid) Stat Lab 03/18/25 06:05 Completed Lactic Acid, 3 HR Stat Lab 03/18/25 09:23 Completed Magnesium Stat Lab 03/18/25 00:45 Completed Partial Thromboplastin Time Stat Lab 03/18/25 00:45 Completed Procalcitonin Stat Lab 03/18/25 02:37 Completed Prothrombin Time with INR Stat Lab 03/18/25 00:45 Completed Troponin I Stat Lab 03/18/25 00:45 Completed Urinalysis Stat Lab 03/18/25 02:42 Completed Urine Culture Stat Lab 03/18/25 02:42 Received ALBUTEROL RT 0.5ml [Proventil Rt 0.5ml] Med 03/18/25 06:31 Discontinued 10 mg INH X1 ONE ALBUTEROL RT 0.5ml [Proventil Rt 0.5ml] Med 03/18/25 08:30 Discontinued 2.5 mg INH X1 ONE Azithromycin Inj [Zithromax Inj] 500 mg Med 03/18/25 04:33 Discontinued Sodium Chloride 0.9% 250 ml [Ns] 250 ml IV X1 DILTIAZEM in D5W 125 MG Med 03/18/25 09:00 Discontinued 125 mg in 125 ml IV 5 mls/hr Diltiazem Inj [Cardizem Inj] Med 03/18/25 01:33 Discontinued 15 mg IV X1 ONE Diltiazem Inj [Cardizem Inj] Med 03/18/25 04:27 Discontinued 15 mg IV X1 ONE Etomidate Inj [Amidate Inj] Med 03/18/25 03:46 Discontinued 20 mg .ROUTE .STK-MED ONE Etomidate Inj [Amidate Inj] Med 03/18/25 03:49 Discontinued 20 mg IVP X1 ONE Ipratropium [place] Rt Jennifer [Atrovent Rt Jennifer] Med 03/18/25 06:31 Discontinued 1 mg INH X1 ONE LORazepam [Ativan Inj] Med 03/18/25 02:47 Discontinued 0.5 mg IVP X1 ONE LORazepam [Ativan Inj] Med 03/18/25 03:25 Discontinued 1 mg IVP X1 ONE Levalbuterol Rt [Xopenex Rt Jennifer] Med 03/18/25 08:34 Discontinued 0.63 mg INH X1 ONE MethylPREDNISolone.* [SoluMEDROL Inj] Med 03/18/25 06:31 Discontinued 125 mg IVP X1 ONE Morphine Inj Med 03/18/25 09:02 Discontinued 4 mg IVP X1 ONE Morphine Inj Med 03/18/25 11:08 Discontinued 6 mg IVP X1 ONE Morphine Inj Med 03/18/25 14:15 Discontinued 6 mg IVP X1 ONE OLANZapine INJ [Zyprexa Inj] 5 mg Med 03/18/25 08:47 Discontinued Sterile Water 2.1 ml IM QDAY OLANZapine [ZyPREXA] Med 03/18/25 08:31 Discontinued 5 mg PO X1 ONE Rocuronium Inj [Zemuron Inj] Med 03/18/25 03:47 Discontinued 100 mg .ROUTE .STK-MED ONE Rocuronium Inj [Zemuron Inj] Med 03/18/25 03:49 Discontinued 50 mg IVP X1 ONE Sodium Chloride 0.9% 1000 ml [Ns] 1,000 ml Med 03/18/25 02:24 Discontinued IV 999 mls/hr Sodium Chloride 0.9% 1000 ml [Ns] 1,000 ml Med 03/18/25 02:25 Discontinued IV 999 mls/hr Sodium Chloride 0.9% 1000 ml [Ns] 1,000 ml Med 03/18/25 09:56 Discontinued IV 999 mls/hr Sodium Chloride 0.9% 500 ml [Ns] 500 ml Med 03/18/25 10:37 Discontinued IV 999 mls/hr Sodium Chloride Rt Jennifer 0.9% [NS Rt Jennifer 0.9%] Med 03/18/25 06:31 Discontinued 3 ml INH PRN PRN Sodium Chloride Rt Jennifer 0.9% [NS Rt Jennifer 0.9%] Med 03/18/25 08:30 Discontinued 3 ml INH PRN PRN cefTRIAXone/D5w 1gm IV premix [Rocephin/D5w 1gm IV Med 03/18/25 02:24 Discontinued premix] 1 gm in 50 ml IV X1 flumazeniL [Romazicon Inj] Med 03/18/25 03:53 Discontinued 1 mg .ROUTE .STK-MED ONE flumazeniL [Romazicon Inj] Med 03/18/25 03:55 Discontinued 2 mg .ROUTE .STK-MED ONE flumazeniL [Romazicon Inj] Med 03/18/25 03:41 Discontinued 3 mg IVP X1 ONE flumazeniL [Romazicon Inj] Med 03/18/25 03:56 Discontinued 3 mg IVP X1 ONE BiPAP / CPAP NOW RT 03/18/25 03:56 Completed Vital Signs Vital signs: Vital Signs Temperature 98.7 F 03/17/25 23:53 Pulse Rate 124 H 03/17/25 23:53 Respiratory Rate 19 03/17/25 23:53 Blood Pressure 131/74 H 03/17/25 23:53 Pulse Oximetry (%) 95 03/17/25 23:53 Oxygen Delivery Method Nasal Cannula 03/17/25 23:53 Oxygen Flow Rate 3 03/17/25 23:53 Procedures -ED Laceration Laceration 1: Site: face (just above right eyebrow) Side (If applicable): right Size (cm): 4 Description: linear Depth: simple, single layer Pre-repair: irrigated extensively Skin layer closed with: other (steri strips and dermabond) Shortness of Breath / Dyspnea MDM Narrative MDM Narrative:: Scribe Attestation: 03/17/25 Kary Lombardo am scribing for and in the presence of Dr. Gracia. 0222: 0222: Sepsis alert initiated due to the patient being tachycardic with an elevated WBC count. Orders made at this time are congruent with ED Adult Sepsis Order List. Re-evaluation is to be completed. 0237: NS IVF started. 0341: Patient given Ativan 1.5mg and his HR is now sustaining in the 170s, as well as now being hypoxic. SNF staff was called and informed us that they do not give the patient benzodiazepines at their facility (has been there since 03/05/25). Flumazenil ordered. Patient's hospice nurse was called and informed us that the patient is a DNR on comfort measures, and that they will fax over the form. ABG completed and BiPAP was placed. Patient's mentation improved after BiPAP was placed. As of 409, patient's HR is now in the 130s. Patient did receive 1L NS IVF. Sepsis reassessment performed consisting of lab review, vitals, physical exam including auscultation of heart, lungs, and visual evaluation of capillary refills, mucosal membranes and extremities. 0427: Blood pressure is 97 systolically with a HR in the 160s. Cardizem 15mg IV ordered. 0433: Blood pressure is now 105/83 with a HR in the 130s. 0506: Patient's blood pressure is 115/86 with a HR of 115 and is saturating at 1 00% on 5L/NC. Repeat ABG ordered. 0600: Care signed out to Dr. Hernandes (emergency physician). Past medical, surgical, social and family history reviewed. Vitals and home medications reviewed. Results and treatment plan discussed. They will assume the care of the patient at this time and will follow the patient, pending CT head. Patient data External records reviewed:: [facility] previous records (Per chart review, patient was seen here on 01/21/25 for chest pain.) Clinical information provided by:: EMS and inspector eyeglass frames Social determinants that could affect healthcare access:: housing (SNF resident) Patient has the following chronic illnesses:: lung CA, prostate CA, DMI, HTN, dementia How is presenting disease/condition affected by chronic disease/condition?: uneffected by Evaluation data The following diagnostics were reviewed and interpreted by me:: lab results, radiology exam(s) and EKG tracing(s) Lab and/or radiology exams considered but not ordered:: none Interpretation Summary: WBC count elevated at 17.4, Glucose is 197, Magnesium normal, Troponin normal, BNP normal, Lactic Acid 2.9, BNP is normal, Procalcitonin normal, according to my interpretation. ABG shows pH 7.33, elevated pCO2 of 61, elevated HCO3 32. Repeat ABG shows pH 7.36, pCO2 57, HCO3 33. CXR shows right lower lobe infiltrates, normal cardiac silhouette, and an elevated right hemidiaphragm, according to my interpretation. Right forearm x-ray shows a well-healed distal radial fracture, no carpal fra ctures, no acute radial or ulnar fractures, according to my intepretation. Right ankle x-ray is negative for any fracture, dislocation or subcutaneous gas, according to my interpretation. Right elbow x-ray is negative for any fracture, dislocation or subcutaneous gas, according to my interpretation. Right hand x-ray is negative for any fracture, dislocation or metacarpal fractures, according to my interpretation. Right knee x-ray is negative for tibial plateau fracture, distal femur fracture or patellar fracture, according to my interpretation. Right shoulder x-ray is negative for any clavicular fracture, proximal humeral fracture or glenoid fracture, according to my interpretation. EKG done at 0031, aFib, rate of 133, normal axis, no acute ischemia, QTc: 394, according to my interpretation. Repeat EKG done at 0346, aFib, rate of 147, normal axis, occasional PVCs, no STEMI, QTc: 393, according to my interpretation. Medications / Prescriptions Medications or Prescriptions considered but not ordered:: none Medication administrations:: Medication Administration History Discontinued Medications Albuterol (Albuterol Rt 2.5 Mg/0.5 Ml Nebu) 10 mg INH X1 ONE Stop: 03/18/25 06:32 Last Admin: 03/18/25 06:54 Dose: 10 mg Documented By: JOEL Albuterol (Albuterol Rt 2.5 Mg/0.5 Ml Nebu) 2.5 mg INH X1 ONE Stop: 03/18/25 08:31 Last Admin: 03/18/25 09:26 Dose: Not Given Documented By: KENA Non-Admin Reason: Cancelled by Provider Olanzapine 5 mg/ Sterile Water (2.1 ml) 0 mg IM QDAY ONE Stop: 03/18/25 08:48 Last Admin: 03/18/25 08:58 Dose: 5 dose Documented By: KENA Diltiazem HCl (Diltiazem Inj 5 Mg/Ml Vial 5 Ml) 15 mg IV X1 ONE Stop: 03/18/25 01:34 Last Admin: 03/18/25 01:51 Dose: 15 mg Documented By: CVL Comments: IV LOCK AT LEFT AC, PUSHED X 4 MIN Diltiazem HCl (Diltiazem Inj 5 Mg/Ml Vial 5 Ml) 15 mg IV X1 ONE Stop: 03/18/25 04:28 Last Admin: 03/18/25 04:43 Dose: 15 mg Documented By: SIGIFREDO Comments: AMINISTERED TO 20G IV LEFT HAND Etomidate (Etomidate Inj 2 Mg/Ml Vial 10 Ml) 20 mg IVP X1 ONE Stop: 03/18/25 03:50 Last Admin: 03/18/25 04:54 Dose: Not Given Documented By: SIGIFREDO Non-Admin Reason: Discontinued Etomidate (Etomidate Inj 2 Mg/Ml Vial 10 Ml) Confirm Administered Dose 20 mg .ROUTE .STK-MED ONE Stop: 03/18/25 03:47 Last Admin: 03/18/25 04:41 Dose: Not Given Documented By: SIGIFREDO Non-Admin Reason: Override Medication Flumazenil (Flumazenil Inj 0.1 Mg/Ml Vial 10 Ml) 3 mg IVP X1 ONE Stop: 03/18/25 03:42 Last Admin: 03/18/25 04:54 Dose: Not Given Documented By: SIGIFREDO Non-Admin Reason: Discontinued Flumazenil (Flumazenil Inj 0.1 Mg/Ml Vial 10 Ml) 3 mg IVP X1 ONE Stop: 03/18/25 03:57 Last Admin: 03/18/25 04:04 Dose: 3 mg Documented By: SIGIFREDO Flumazenil (Flumazenil Inj 0.1 Mg/Ml Vial 10 Ml) Confirm Administered Dose 1 mg .ROUTE .STK-MED ONE Stop: 03/18/25 03:54 Last Admin: 03/18/25 04:19 Dose: Not Given Documented By: SIGIFREDO Non-Admin Reason: Override Medication Flumazenil (Flumazenil Inj 0.1 Mg/Ml Vial 10 Ml) Confirm Administered Dose 2 mg .ROUTE .STK-MED ONE Stop: 03/18/25 03:56 Last Admin: 03/18/25 04:19 Dose: Not Given Documented By: SIGIFREDO Non-Admin Reason: Override Medication Sodium Chloride (Ns) 1,000 mls @ 999 mls/hr IV .Q1H1M ONE Stop: 03/18/25 03:24 Last Infusion: 03/18/25 03:50 Dose: 0 mls/hr Documented By: Admin: 03/18/25 02:37 Dose: 999 mls/hr Documented By: ABRAM Ceftriaxone Sodium/Dextrose (Rocephin/D5w 1gm Iv Premix) 1 gm in 50 mls @ 100 mls/hr IV X1 ONE Stop: 03/18/25 02:53 Last Infusion: 03/18/25 03:39 Dose: Infused Documented By: Admin: 03/18/25 03:06 Dose: 100 mls/hr Documented By: SIGIFREDO Sodium Chloride (Ns) 1,000 mls @ 999 mls/hr IV .Q1H1M ONE Stop: 03/18/25 03:25 Last Infusion: 03/18/25 03:50 Dose: 0 mls/hr Documented By: Admin: 03/18/25 02:37 Dose: 999 mls/hr Documented By: ABRAM Azithromycin 500 mg/ Sodium (Chloride) 250 mls @ 250 mls/hr IV X1 ONE Stop: 03/18/25 05:32 Last Infusion: 03/18/25 06:15 Dose: Infused Documented By: Admin: 03/18/25 05:05 Dose: 250 mls/hr Documented By: SIGIFREOD Diltiazem HCl (Diltiazem In D5w 125 Mg) 125 mg in 125 mls @ 5 mls/hr IV .Q24H GRACIELA Stop: 04/17/25 08:59 Last Infusion: 03/18/25 11:33 Dose: 0 mls/hr Documented By: Admin: 03/18/25 09:11 Dose: 5 mls/hr Documented By: KENA Sodium Chloride (Ns) 1,000 mls @ 999 mls/hr IV .Q1H1M ONE Stop: 03/18/25 10:56 Last Infusion: 03/18/25 11:33 Dose: Infused Documented By: Admin: 03/18/25 10:22 Dose: 999 mls/hr Documented By: KENA Sodium Chloride (Ns) 500 mls @ 999 mls/hr IV .Q31M ONE Stop: 03/18/25 11:07 Last Infusion: 03/18/25 11:33 Dose: Infused Documented By: Admin: 03/18/25 10:43 Dose: 999 mls/hr Documented By: KENA Ipratropium [place] (Ipratropium Rt 0.5 Mg/ 2.5 Ml Nebu) 1 mg INH X1 ONE Stop: 03/18/25 06:32 Last Admin: 03/18/25 06:53 Dose: 1 mg Documented By: JOEL Levalbuterol HCl (Levalbuterol Rt 0.63 Mg/3 Ml Nebu) 0.63 mg INH X1 ONE Stop: 03/18/25 08:35 Last Admin: 03/18/25 08:43 Dose: 0.63 mg Documented By: JOEL Lorazepam (Lorazepam 2 Mg/Ml Vial) 0.5 mg IVP X1 ONE Stop: 03/18/25 02:48 Last Admin: 03/18/25 02:57 Dose: 0.5 mg Documented By: SIGIFREDO Lorazepam (Lorazepam 2 Mg/Ml Vial) 1 mg IVP X1 ONE Stop: 03/18/25 03:26 Last Admin: 03/18/25 03:30 Dose: 1 mg Documented By: SIGIFREDO Methylprednisolone Sodium Succinate (Methylprednisolone Sod Succ 62.5 Mg/Ml 2ml Vial) 125 mg IVP X1 ONE Stop: 03/18/25 06:32 Last Admin: 03/18/25 06:36 Dose: 125 mg Documented By: SIGIFREDO Morphine Sulfate (Morphine Sulf Inj 10 Mg/Ml Vial) 4 mg IVP X1 ONE Stop: 03/18/25 09:03 Last Admin: 03/18/25 09:22 Dose: 4 mg Documented By: KENA Morphine Sulfate (Morphine Sulf Inj 10 Mg/Ml Vial) 6 mg IVP X1 ONE Stop: 03/18/25 11:09 Last Admin: 03/18/25 11:41 Dose: 6 mg Documented By: FANY Morphine Sulfate (Morphine Sulf Inj 10 Mg/Ml Vial) 6 mg IVP X1 ONE Stop: 03/18/25 14:16 Last Admin: 03/18/25 14:20 Dose: 6 mg Documented By: KENA Olanzapine (Olanzapine 5 Mg Tablet) 5 mg PO X1 ONE Stop: 03/18/25 08:32 Last Admin: 03/18/25 08:45 Dose: Not Given Documented By: KENA Non-Admin Reason: Contraindicated Rocuronium [place] (Rocuronium Inj 10 Mg/Ml Vial 10 Ml) 50 mg IVP X1 ONE Stop: 03/18/25 03:50 Last Admin: 03/18/25 04:55 Dose: Not Given Documented By: SIGIFREDO Non-Admin Reason: Discontinued Rocuronium [place] (Rocuronium Inj 10 Mg/Ml Vial 10 Ml) Confirm Administered Dose 100 mg .ROUTE .STK-MED ONE Stop: 03/18/25 03:48 Last Admin: 03/18/25 04:41 Dose: Not Given Documented By: SIGIFREDO Non-Admin Reason: Override Medication Sodium Chloride (Sodium Chloride Rt Jennifer 0.9% 3 Ml Nebu) 3 ml INH PRN PRN PRN Reason: SOLN Stop: 04/17/25 06:30 Last Admin: 03/18/25 06:55 Dose: 3 ml Documented By: JOEL Sodium Chloride (Sodium Chloride Rt Jennifer 0.9% 3 Ml Nebu) 3 ml INH PRN PRN PRN Reason: SOLN Stop: 04/17/25 08:29 see above Consultations Consultation(s) initiated? (list below): No Diagnosis Shortness of Breath Differential Diagnosis: other (skull fx, subdural hematoma, long bone fx, ICH) Most likely diagnosis given after review of the tests above:: rapid aFib, pneumonia, sepsis, fall, laceration Admission Indicated Admission indicated?: not indicated Explain why admission is indicated or not indicated:: Diagnostics pending at sign out. Admission Request Was there a request for admission?: No Disposition Plan Disposition Plan: other (specify) (Signed out to Dr. Hernandes at [address] head.) Critical Care Time Critical Care Time Critical Care Time: Yes Total Critical Care Time (min.): 60 Attestation: The high probability of sudden, clinically significant deterioration in the patient?s condition required the highest level of my preparedness to intervene urgently. The services I provided to this patient were to treat and/or prevent clinically significant deterioration. Services included the following: chart data review, reviewing nursing notes and/or old charts, documentation time, territory sales consultant collaboration regarding findings and treatment options, medication orders and management, direct patient care, vital sign assessments and ordering, interpreting and reviewing diagnostic studies and lab tests. Aggregate critical care time includes only time during which I was engaged in work directly related to the patient?s care, as described above, whether at bedside or elsewhere in the Emergency Department. It did not include time spent performing other reported procedures or the services of residents, students, nurses or physician assistants. Discharge Plan Plan Patient Disposition: HOME (Self Care) Prescriptions/Referrals Prescriptions/Med Rec: No Action tamsulosin 0.4 mg Capsule,Extended Release 24hr 0.4 mg PO QDAY hydrochlorothiazide 12.5 mg Capsule 12.5 mg PO QAM bisacodyl 5 mg Tablet 5 mg PO QDAY PRN (Reason: Constipation) doxycycline hyclate 100 mg capsule 100 mg PO BID Qty: 14 0RF Referrals: Richard([facility]),Almaz Silveira MD [Primary Care Provider] - In 1 week Problem List Clinical Impression: Sepsis, Fall, Pneumonia, Atrial fibrillation with RVR, Laceration of eyebrow, Fracture of right wrist, Need for comfort care Patient/Caregiver Discharge Instructions Education Materials: ED Atrial Fibrillation, ED Fracture, Upper Extremity Additional Instructions: Your lung cancer appears to be advancing and is to be anticipated. With your desire for comfort care, there is anticipation that additional pain medicines will be needed. You can follow-up with hospice as needed Print Language: Guyanese Stand Alone Forms: [employer] Award Info., Patient Portal Info Letter
--- NOTE | 2025-03-18 00:20 | XR_ITS ---
Examination: Right elbow 2 views Technique right elbow AP lateral 2 views Date and time: March 18, 2025 0152 hours INDICATIONS: Patient fell today with injury to the elbow, elbow pain. FINDINGS: Significant elbow osteoarthritis. No acute fracture Prominent osteopenia IMPRESSION: No acute fracture
--- NOTE | 2025-03-18 00:20 | XR_ITS ---
Examination: Hand, right 3 views Technique: Hand AP, oblique, lateral 3 views Date and time of exam: March 18, 2025 0143 hours INDICATIONS: Patient fell today with injury to the wrist, wrist pain and pain FINDINGS: Suspicious for acute fracture distal radial metaphysis Limited study, no true lateral view of the wrist IMPRESSION: Recommend follow-up standard 3 view wrist series
--- NOTE | 2025-03-18 00:20 | XR_ITS ---
Examination: Forearm, right, 2 views. Technique: Forearm, AP, lateral 2 views Date and time of exam: March 18, 2025, 0147 hours INDICATION: Patient fell today with injury to the forearm, forearm pain. FINDINGS: Acute intra-articular fractures distal radial metaphysis No significant displacement IMPRESSION: Acute intra-articular fractures distal radial metaphysis
--- NOTE | 2025-03-18 00:20 | XR_ITS ---
Examination: Right knee 2 views TECHNIQUE: AP lateral right knee 2 views Date and time: March 18, 2025, 0132 hours INDICATIONS: Patient fell today with injury to the knee, knee pain FINDINGS: No acute fracture Severe osteopenia Small knee effusion IMPRESSION: No acute fracture
--- NOTE | 2025-03-18 00:20 | XR_ITS ---
Examination: Right shoulder 2 views TECHNIQUE: AP internal rotation Y-view right shoulder 2 views Date and time: March 18, 2025 0139 hours INDICATIONS: Patient fell today with injury to the shoulder, shoulder pain FINDINGS: Severe osteopenia No shoulder fracture or dislocation Moderate calcific tendinitis Multiple right-sided rib fractures Pulmonary mass right upper lobe IMPRESSION: No acute fracture
--- NOTE | 2025-03-18 00:20 | XR_ITS ---
Examination: Right ankle 2 views TECHNIQUE: AP lateral right ankle 2 views Date and time: March 18, 2025 0132 hours INDICATIONS: Patient fell today with injury to the ankle, ankle pain. FINDINGS: No acute fracture. No ankle dislocation IMPRESSION: No acute fracture
[2025-03-18 01:06] LABS: Basophils # (Auto) 0.1 Thou/mm3 (0.0-0.2); Basophils % (Auto) 0 % (0-2.5); Eosinophils % (Auto) 0 % (0-10); Hematocrit 34.6 % (41.0-53.0); Hemoglobin 11.4 g/dL (13.5-16.0); Immature Granulocytes % (Auto) 1 % (0-0); Lymphocytes # (Auto) 0.5 Thou/mm3 (1.0-4.8); Lymphocytes % (Auto) 3 % (10-50); Mean Corpuscular HGB Conc 32.9 g/dl (31.0-37.0); Mean Corpuscular Hemoglobin 30.3 pg (25.0-35.0); Mean Corpuscular Volume 92 fL (80-100); Monocytes # (Auto) 1.2 Thou/mm3 (0.0-0.8); Monocytes % (Auto) 7 % (0-12); Neutrophils # (Auto) 15.4 Thou/mm3 (1.8-7.7); Neutrophils % (Auto) 88 % (37-80); Nucleated Red Blood Cell % 0 /100 WBC (0); Platelet Count 239 Thou/mm3 (140-440); RDW Standard Deviation 44.4 fL (35.1-43.9); Red Blood Count 3.76 Miln/mm3 (4.50-5.90); White Blood Count 17.4 Thou/mm3 (3.8-10.6)
[2025-03-18 01:23] LABS: B-Type Natriuretic Peptide 36 pg/mL (0-100)
[2025-03-18 01:24] LABS: Alanine Aminotransferase 17 U/L (10-49); Albumin, Serum 3.2 gm/dL (3.4-4.8); Anion Gap 7 (7-16); Aspartate Amino Transferase 21 U/L (0-34); BUN/Creatinine Ratio 24 Ratio (12-20); Bilirubin,Total 0.6 mg/dL (0.3-1.2); Blood Urea Nitrogen 17 mg/dL (9-23); Calcium (Corrected) 10.6 mg/dL (8.5-10.1); Carbon Dioxide 33.8 mMol/L (20.0-31.0); Chloride 95 mMol/L (98-107); Creatinine (Component) 0.7 mg/dL (0.6-1.3); Estimated Creatinine Clearance 79.9 mL/min (>60); Glucose 197 mg/dL (74-106); Magnesium 1.8 mg/dL (1.6-2.6); Osmolality,Calculated 278 (275-295); Potassium 3.5 mMol/L (3.4-5.1); Sodium 136 mMol/L (136-145); Total Protein 6.4 gm/dL (5.7-8.2); Troponin I < 0.020 ng/mL (0.0-0.045); eGFR > 60 See Note
[2025-03-18 01:25] LABS: Alkaline Phosphatase 160 U/L (46-116); Globulin 3.2 gm/dL (2.3-3.5)
[2025-03-18 01:40] LABS: INR 1.2 (0.9-1.3); Partial Thromboplastin Time 26.1 Seconds (22.0-36.0); Prothrombin Time 12.8 Seconds (9.0-12.2)
[2025-03-18] MEDS: DILTIAZEM INJ 5 MG/ML VIAL 5 ML 15 MG IV ×2 (01:51→04:43)
[2025-03-18] MEDS: SODIUM CHLORIDE 0.9% 1000 ML 1,000 ML 999 ML IV ×3 (02:37→10:22)
[2025-03-18 02:47] LABS: Lactate (Lactic Acid) 2.9 mMol/L (0.4-2.0)
[2025-03-18 02:48] LABS: Collection Type, Urine Catheter
[2025-03-18 02:55] LABS: Bacteria,Urine Rare; Bilirubin,Urine Negative (Negative); Blood,Urine Negative (Negative); Calcium Oxalate Crystals,Urine 1+; Clarity,Urine Turbid (Clear/Hazy); Color,Urine Yellow (Lt Yel-Yel); Glucose, Urine Negative (Negative); Granular Casts,Urine < 1 /hpf (0-1); Hyaline Casts,Urine 1 /hpf (0-1); Ketones,Urine Negative (Negative); Leukocyte Esterase,Urine Negative (Negative); Nitrite,Urine Negative (Negative); Protein,Urine Trace (Neg - Trace); RBC,Urine 4 /hpf (0-3); Squamous Epithelial Cell,Urine < 1 /hpf (0-5); Urobilinogen,Urine Negative mg/dL (0.0-1.0); WBC,Urine 2 /hpf (0-5)
[2025-03-18] MEDS: LORazepam 2 MG/ML VIAL 0.5 MG IVP (02:57)
[2025-03-18] MEDS: cefTRIAXone/D5w 1gm IV premix 1 GM/50 ML BAG IV (03:06)
[2025-03-18 03:13] LABS: Procalcitonin 0.19 ng/ml (0.0-0.49)
--- NOTE | 2025-03-18 03:25 | PC.NURSE ---
DR. STEWART NOTIFIED PATIENT UNABLE TO HOLD STILL AND WON'T LAY DOWN FOR CT, VERBAL ORDER RECEIVED FOR ATIVAN 1MG IV NOW.
[2025-03-18] MEDS: LORazepam 2 MG/ML VIAL 1 MG IVP (03:30)
--- NOTE | 2025-03-18 03:55 | PC.NURSE ---
PATIENT NOTED WITH INCREASE AGITATION AFTER ATIVAN MEDICATION, DR. STEWART CALLED TO BEDSIDE. DR. STEWART WANTING TO INTUBATE PATIENT, HOSPICE NURSE PJ CONTACTED AND HOSPICE NURSE STATED VIA TELEPHONE THAT PATIENT IS DNR COMFORT MEASURES. HOSPICE NURSE STATED THAT HE WOULD FAX ADVANCE DIRECTIVE TO ED. CHARGE NURSE SORIANO CONTACTED [facility] AND ASKED IF PATIENT HAD EVER RECEIVED ATIVAN AT THE NURSING FACILITY MEDICATION WAS LISTED PRN MEDICATION ON MEDICATION LIST, PER CHARGE NURSE SORIANO NURSING STAFF AT [facility] REPORTED THAT PATIENT HAS NOT RECIEVED ATIVAN AT THE NURSING FACILITY.
[2025-03-18 04:01] LABS: Base Excess 4 (-3-3); HCO3 32 mEq/L (20-26); Inspired Oxygen, FIO2 21 %; O2 Saturation 97 % (91-98); PCO2 61 mmHg (32.0-48.0); PO2 89 mmHg (83-108); pH, Arterial 7.33 (7.35-7.45)
[2025-03-18 04:02] LABS: Allen Test Performed/OK; Puncture Site Right Radial
[2025-03-18] MEDS: FLUMAZENIL INJ 0.1 MG/ML VIAL 10 ML 3 MG IVP (04:04)
--- NOTE | 2025-03-18 04:10 | XR_ITS ---
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
--- NOTE | 2025-03-18 04:13 | PC.RT ---
fio2 titrated to 40% post abg.
--- NOTE | 2025-03-18 04:33 | PC.NURSE ---
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 PER HOSPICE NURSE KAVITA, ED PROVIDER OKAY TO INTUBATE IF NEEDED SINCE THEY ARE NOT ABLE LOCATE ADVANCE DIRECTIVE.
[2025-03-18] MEDS: AZITHROMYCIN INJ 500 MG in SODIUM CHLORIDE 0.9% 250 ML 250 ML 250 MG IV (05:05)
[2025-03-18 05:19] LABS: Base Excess 6 (-3-3); HCO3 33 mEq/L (20-26); Inspired Oxygen, FIO2 21 %; O2 Saturation 99 % (91-98); PCO2 57 mmHg (32.0-48.0); PO2 107 mmHg (83-108); pH, Arterial 7.36 (7.35-7.45)
[2025-03-18 05:20] LABS: Allen Test Performed/OK; Puncture Site Right Radial
[2025-03-18 05:45] LABS: Reflex Lactate? Y
[2025-03-18 06:08] LABS: Lactate (Lactic Acid) 3.3 mMol/L (0.4-2.0)
--- NOTE | 2025-03-18 06:26 | PC.NURSE ---
DR. FERNANDEZ AT BEDSIDE ASSESSING PATIENT.
[2025-03-18] MEDS: MethylPREDNISolone SOD SUCC 62.5 MG/ML 2ML VIAL 125 MG IVP (06:36)
--- NOTE | 2025-03-18 06:41 | PD.EDADDENDU ---
Emergency Room Addendum Addendum Narrative: 0600: Care assumed from Dr. Gracia, the previous shift emergency physician. Past medical, surgical, social and family history reviewed. Vitals and home medications reviewed. I will assume the care of the patient at this time, pending CT head. Please refer to the emergency department record for history and examination from initial visit.?The following addendum documentation note is intended to reflect any pending information, findings, or radiology results not included in the patient?s initial chart. 0850: I spoke with patients oncologist Dr. Freeman. Reports at baseline the patient is conversive and answers questions appropriately. Patient evidently has requested conservative treatments for the lung mass and is currently undergoing chemotherapy. Recommended a head CT to check for brain mets. We received POLST from [facility]. Patient is DNR comfort measures. 1100: I spoke with patients hospice nurse. 1126: I spoke with Celena from hospice. Discussed possible admission for end of life care. 1250: Celena from hospice reports family would like for the patient to return back home. Patient has remained comfortable through ED course with the Moprhine. Will DC home. Forearm xray shows acute intra-articular fractures distal radial metaphysis. Patient placed in a sugar tong splint, neurovascularly intact. RADIOLOGY Ordering Physician: Sanchez Hernandes MD Date of Service: 03/18/25 Procedure(s): CT head/brain wo con Accession Number(s): [id number] cc: Almaz Ramos MD; Sanchez Hernandes MD; Ashkan Bruce MD~ Examination: CT brain head without contrast. 2-D sagittal coronal reconstructions Date and time of exam:March 18, 2025 0943 hours INDICATIONS: Patient fell today with injury to the head, facial laceration CTDI: vol (mGy):52.0 DLP: (mGycm):1098 Technique: Multiple CT axial sections of the brain have been obtained, 5 mm slice thickness. Contrast has not been administered. 2-D sagittal, coronal reconstructions have been obtained Low dose protocols were performed. One or more of the following dose reduction techniques were used; automated exposure control, adjustment of the mA and/or KV according to patient size, use of iterative reconstruction technique. Findings: Patient motion degrades scan image quality No significant ventricular enlargement. Intra-axial or extra-axial hemorrhage density is not seen. No mass effect or midline shift Basal cisterns are not remarkable. Fourth ventricle is midline. Cranial vault intact. Impression: Negative for acute hemorrhage, mass effect or midline shift Dictated By:Ashkan Bruce MD Signed By:<Electronically signed by Ashkan Bruce MD in OV>03/18/25 1101 ED Procedures Orthopedic Splinting/Casting Injury #1: Side: right Upper Extremity Injury Location: forearm Upper Extremity Immobilizer: sugar tong splint Additional Comments: n/v intact
[2025-03-18] MEDS: IPRATROPIUM RT 0.5 MG/ 2.5 ML NEBU 1 MG INH (06:53)
[2025-03-18] MEDS: ALBUTEROL RT 2.5 MG/0.5 ML NEBU 10 MG INH (06:54)
[2025-03-18] MEDS: SODIUM CHLORIDE RT SOL 0.9% 3 ML NEBU INH (06:55)
--- NOTE | 2025-03-18 08:00 | XR_ITS ---
Examination: CT brain head without contrast. 2-D sagittal coronal reconstructions Date and time of exam:March 18, 2025 0943 hours INDICATIONS: Patient fell today with injury to the head, facial laceration CTDI: vol (mGy):52.0 DLP: (mGycm):1098 Technique: Multiple CT axial sections of the brain have been obtained, 5 mm slice thickness. Contrast has not been administered. 2-D sagittal, coronal reconstructions have been obtained Low dose protocols were performed. One or more of the following dose reduction techniques were used; automated exposure control, adjustment of the mA and/or KV according to patient size, use of iterative reconstruction technique. Findings: Patient motion degrades scan image quality No significant ventricular enlargement. Intra-axial or extra-axial hemorrhage density is not seen. No mass effect or midline shift Basal cisterns are not remarkable. Fourth ventricle is midline. Cranial vault intact. Impression: Negative for acute hemorrhage, mass effect or midline shift
[2025-03-18] MEDS: LEVALBUTEROL RT 0.63 MG/3 ML NEBU INH (08:43)
[2025-03-18] MEDS: OLANZapine INJ 5 MG, Sterile Water 2.1 ML IM (08:58)
[2025-03-18 09:08] LABS: Reflex Lactate? Y
[2025-03-18] MEDS: DILTIAZEM in D5W 125 MG 125 MG/125 ML BAG IV (09:11)
[2025-03-18] MEDS: MORPHINE SULF INJ 10 MG/ML VIAL 4 MG IVP (09:22)
[2025-03-18 09:43] LABS: Lactic Acid, 3 HR 5.7 mMol/L (0.4-2.0)
--- NOTE | 2025-03-18 09:55 | PC.CC ---
Addendum entered by Sherry Alicia 03/18/25 13:57: ASW arranged transportation for pt back to [facility] [place]. Pt p/u ETA 1600. If RN needs to contact [facility] [place] they can call [phone] Addendum entered by Sherry Alicia 03/18/25 11:04: ASW received the POLST from [facility] and provided the POLST to the assigned RN Atif and provided a copy to ER provider Dr. Hernandes. Pt is listed on the POLST as a DNR with comfort care measures. See POLST in chart. Original Note: ASW contacted staff member at [facility] [place] [phone] and asked to send an Adanced Care for pt. Wedding Decorator was told that [facility] has not provided them with one yet and will contact [facility] for a copy. ASW contacted [facility] and spoke with Mary [phone] and asked for an Advanced Directive to be faxed to this casualty underwriter. Mary will faxe the advanced directive to [phone] or [phone].
[2025-03-18] MEDS: SODIUM CHLORIDE 0.9% 500 ML 500 ML 999 ML IV (10:43)
--- NOTE | 2025-03-18 11:08 | PC.NURSE ---
GOT A CALL FROM INFORMATION ASSURANCE OFFICER MARY WHO IS THE TRAILER DRIVER FOR THIS PT AND CONFIRM THAT THIS PT IS A DNR AND PROVIED A COPY OF THE POLST. DR. FERNANDEZ MADE AWARE, NEW ORDERS GIVEN TO THIS NURSE
[2025-03-18] MEDS: MORPHINE SULF INJ 10 MG/ML VIAL 6 MG IVP ×2 (11:41→14:20)
--- NOTE | 2025-03-18 12:55 | PC.NURSE ---
GOT A CALL FROM MARY NUNO FROM HOSPICE WHO WAS GIVEN AN UPDATE ON THIS PT AND SHE SPOKE TO THIS PT SON WHO REPORTED THAT HE WILL LIKE THE PT TO GO BACK TO THE SNF FOR COMFORT CARE. DR. FERNANDEZ MADE AWARE.
== END 2025-03-18 14:29 | disposition home or self-care (01) ==
PROVIDERS: Emergency Medicine; Emergency Provider Emergency Medicine; PCP Hospitalist
DX: S52.571A Other intraarticular fracture of lower end of right radius, initial encounter for closed fracture (principal); S01.111A Laceration without foreign body of right eyelid and periocular area, initial encounter; S59.901A Unspecified injury of right elbow, initial encounter; S69.91XA Unspecified injury of right wrist, hand and finger(s), initial encounter; J18.9 Pneumonia, unspecified organism; I48.91 Unspecified atrial fibrillation; C34.11 Malignant neoplasm of upper lobe, right bronchus or lung; S49.91XA Unspecified injury of right shoulder and upper arm, initial encounter; S99.911A Unspecified injury of right ankle, initial encounter; S89.91XA Unspecified injury of right lower leg, initial encounter; S09.90XA Unspecified injury of head, initial encounter; W19.XXXA Unspecified fall, initial encounter; Z66 Do not resuscitate; Z51.5 Encounter for palliative care; Z87.891 Personal history of nicotine dependence
CPT/HCPCS: 29125; 36415; 36600; 70450; 71045; 73030; 73070; 73090; 73120; 73130; 73560; 73600; 80053; 81001; 82803; 83605; 83735; 83880; 84145; 84484; 85025; 85610; 85730; 87040; 87077; 87086; 87186; 93005; 94640; 94644; 94660; 96361; 96365; 96366; 96367; 96372; 96374; 96375; 96376; 99291; A4216; A4565; J0456; J0696; J2060; J2270; J2358; J2919; J3490; J7030; J7050; J7999; J2359